=== PATIENT | female | born 1965 | race Hispanic/Latino ===

== ENCOUNTER → 2017-06-20 | Outpatient (CLI) | payer BC | LOC: RAH 12:27 | PROVIDERS: ATTEND Internal Medicine | DX: M54.9 Dorsalgia, unspecified (principal) | CPT/HCPCS: 72100 ==

== ENCOUNTER → 2018-12-18 | Outpatient (CLI) | payer BC | END | disposition home or self-care (01) | LOC: RAH 12:48 | PROVIDERS: ATTEND Internal Medicine | DX: M17.0 Bilateral primary osteoarthritis of knee (principal) | CPT/HCPCS: 73560 ==

== ENCOUNTER 2019-01-30 07:45 | Emergency (ER) | payer BC | END 2019-01-30 10:25 | disposition home or self-care (01) | LOC: EDH 07:45 | DX: S82.102A Unspecified fracture of upper end of left tibia, initial encounter for closed fracture (principal); V28.0XXA Motorcycle driver injured in noncollision transport accident in nontraffic accident, initial encounter; Y93.55 Activity, bike riding; Y92.89 Other specified places as the place of occurrence of the external cause; Y99.8 Other external cause status | CPT/HCPCS: 29505; 73562; 73600 ==

== ENCOUNTER 2022-12-02 21:14 | Emergency (ER) | payer BC ==
[~2022-12-02] VITALS: Ht 162.6 cm; Wt 122.5 kg
[2022-12-02 21:20] VITALS: BP 126/72; PULSE 92; RESP 16; O2SAT 97
[2022-12-02] MEDS ORDERED: ACETAMINOPHEN WITH CODEINE 1 TAB TAB PO ONE (22:00)
[2022-12-02] MEDS ORDERED: ACET-2079 PO (22:14)
== END 2022-12-02 22:56 | disposition home or self-care (01) ==
LOC: EDH 21:14
DX: M77.31 Calcaneal spur, right foot (principal); Z85.3 Personal history of malignant neoplasm of breast
CPT/HCPCS: 73630

== ENCOUNTER 2023-04-12 12:31 | Emergency (ER) | payer BC ==
[~2023-04-12] VITALS: Ht 162.6 cm; Wt 123.4 kg
[~2023-04-12 12:31] MED LIST: ACET-2079 PO
[2023-04-12 14:20] LABS: APPEARANCE,URINE CLEAR (CLEAR); BILIRUBIN,URINE NEGATIVE (NEGATIVE); GLUCOSE, URINE (UA) NEGATIVE (NEGATIVE); KETONES,URINE 10 mg/dL (NEGATIVE); LEUKOCYTE ESTERASE ,URINE NEGATIVE Leu/uL (NEGATIVE); NITRATE,URINE NEGATIVE (NEGATIVE); OCCULT BLOOD,URINE LARGE (NEGATIVE); PROTEIN,URINE NEGATIVE (NEGATIVE); UROBILINOGEN,URINE 0.2 mg/dL (0.2-1.0)
[2023-04-12 14:32] LABS: ADD UA MICROSCOPIC YES; COLOR,URINE LIGHT-YELLOW (YELLOW)
[2023-04-12 14:33] LABS: MUCUS,URINE RARE LPF (None Seen); SQUAMOUS EPITHELIAL CELL,UR RARE /HPF (0-2); WBC,URINE 0-1 /HPF (0-1)
[2023-04-12 15:21] LABS: BASOPHILS # (AUTO) 0.07 K/uL (0.00-0.20); BASOPHILS % (AUTO) 0.6 % (0.0-5.0); EOSINOPHILS # (AUTO) 0.01 K/uL (0.00-0.70); EOSINOPHILS % (AUTO) 0.1 % (0.0-8.0); HEMATOCRIT 43.6 % (36-48); IMMATURE GRANULOCYTE ABSOLUTE 0.07 K/uL (0-1); LYMPHOCYTES # (AUTO) 0.8 K/uL (1.0-4.8); LYMPHOCYTES % (AUTO) 7.3 % (21.0-51.0); MEAN CORPUSCULAR HEMOGLOBIN 31.4 pg (27.0-33.0); MEAN CORPUSCULAR HGB CONC 34.2 g/dL (32.0-36.0); MONOCYTES # (AUTO) 0.5 K/uL (0.1-1.0); MONOCYTES % (AUTO) 4.6 % (3.0-13.0); NEUTROPHILS # (AUTO) 9.5 K/uL (1.8-7.7); NEUTROPHILS % (AUTO) 86.8 % (40.0-77.0); PLATELET COUNT (AUTO) 224 K/uL (130-400); RED BLOOD CELL COUNT(AUTO) 4.74 MIL/uL (4.00-5.50); RED CELL DISTRIBUTION WIDTH 12.7 % (11.0-15.5); WHITE BLOOD COUNT (AUTO) 10.9 K/uL (4.8-10.8)
[2023-04-12 15:38] LABS: CREATININE 0.9 mg/dL (0.5-1.5); POTASSIUM 4.2 mmol/L (3.5-5.1)
[2023-04-12 15:42] LABS: BILIRUBIN,TOTAL 0.6 mg/dL (0.2-1.0); TOTAL PROTEIN, SERUM 7.8 g/dL (6.0-8.3)
[2023-04-12] MEDS ORDERED: METO-296 PO (16:39)
[2023-04-12] MEDS ORDERED: FAMO-136 PO (16:39)
[2023-04-12] MEDS ORDERED: KETO10 PO (16:39)
[2023-04-12] MEDS ORDERED: TAMS-1 PO (16:39)
[2023-04-12] MEDS ORDERED: TAMSULOSIN HCL 0.4 MG CAP.ER.24H PO ONE (17:00)
[2023-04-12] MEDS ORDERED: METOCLOPRAMIDE 10 MG TABLET PO ONE (17:00)
[2023-04-12 17:11] VITALS: BP 132/74; PULSE 88; RESP 18; O2SAT 99
== END 2023-04-12 17:27 | disposition home or self-care (01) ==
LOC: EDH 12:31
DX: N13.2 Hydronephrosis with renal and ureteral calculous obstruction (principal)
CPT/HCPCS: 36415; 74176; 80053; 81001; 83690; 85025

== ENCOUNTER → 2024-08-03 | Outpatient (CLI) | payer BC ==
[~2024-08-03] VITALS: Ht 162.6 cm; Wt 127.0 kg
[~2024-08-03] MED LIST changes: +FAMO-136 PO; +KETO10 PO; +METO-296 PO; +TAMS-55 PO
[2024-08-03 08:26] LABS: BASOPHILS # (AUTO) 0.06 K/uL (0.00-0.20); BASOPHILS % (AUTO) 0.9 % (0.0-5.0); EOSINOPHILS # (AUTO) 0.14 K/uL (0.00-0.70); HEMATOCRIT 42.8 % (36-48); IMMATURE GRANULOCYTE ABSOLUTE 0.02 K/uL (0-1); LYMPHOCYTES # (AUTO) 1.2 K/uL (1.0-4.8); LYMPHOCYTES % (AUTO) 16.8 % (21.0-51.0); MEAN CORPUSCULAR HEMOGLOBIN 31.1 pg (27.0-33.0); MEAN CORPUSCULAR HGB CONC 33.9 g/dL (32.0-36.0); MEAN CORPUSCULAR VOLUME 91.8 fL (79-99); MONOCYTES # (AUTO) 0.5 K/uL (0.1-1.0); MONOCYTES % (AUTO) 6.7 % (3.0-13.0); NEUTROPHILS % (AUTO) 73.3 % (40.0-77.0); PLATELET COUNT (AUTO) 194 K/uL (130-400); RED BLOOD CELL COUNT(AUTO) 4.66 MIL/uL (4.00-5.50); RED CELL DISTRIBUTION WIDTH 12.8 % (11.0-15.5); WHITE BLOOD COUNT (AUTO) 6.9 K/uL (4.8-10.8)
[2024-08-03 08:32] LABS: APPEARANCE,URINE CLEAR (CLEAR); BILIRUBIN,URINE NEGATIVE (NEGATIVE); COLOR,URINE LIGHT-YELLOW (YELLOW); GLUCOSE, URINE (UA) NEGATIVE (NEGATIVE); KETONES,URINE NEGATIVE (NEGATIVE); LEUKOCYTE ESTERASE ,URINE 25 Leu/uL (NEGATIVE); NITRATE,URINE NEGATIVE (NEGATIVE); PROTEIN,URINE NEGATIVE (NEGATIVE); UROBILINOGEN,URINE 0.2 mg/dL (0.2-1.0)
[2024-08-03 08:33] LABS: ADD UA MICROSCOPIC YES
[2024-08-03 08:34] LABS: CREATININE 0.8 mg/dL (0.5-1.0); POTASSIUM 5.1 mmol/L (3.5-5.1)
[2024-08-03 08:35] LABS: RBC,URINE 0-1 /HPF (0-1); SQUAMOUS EPITHELIAL CELL,UR MOD /HPF (0-2)
[2024-08-03 08:37] LABS: INR 0.95 (0.85-1.15); PROTHROMBIN TIME 10.1 SEC (9.6-11.6)
[2024-08-03 08:39] LABS: PARTIAL THROMBOPLASTIN TIME 28.5 SEC (26.3-35.5)
--- NOTE | 2024-08-03 09:00 | NUR ---
PREOP ABBY RT INSTRUCTED PT ON INCENTIVE SPIROMETRY.
[2024-08-03 09:21] VITALS: BP 150/72; PULSE 82; RESP 18; TEMP 97.2
--- NOTE | 2024-08-07 17:02 | NUR ---
PT order recd, but patient not on OR list per June.
== END | disposition home or self-care (01) ==
LOC: DAH 07:12 → EDSTATUS 09:00
PROVIDERS: ATTEND Orthopaedic Surgery
DX: Z01.812 Encounter for preprocedural laboratory examination (principal); M17.12 Unilateral primary osteoarthritis, left knee; M25.562 Pain in left knee
CPT/HCPCS: 36415; 80048; 81001; 85025; 85610; 85730; 87086; 87641

== ENCOUNTER 2024-08-23 09:49 | Observation (INO) | payer BC ==
[2024-08-21 10:33] LABS: BASOPHILS # (AUTO) 0.06 K/uL (0.00-0.20); BASOPHILS % (AUTO) 1.1 % (0.0-5.0); EOSINOPHILS # (AUTO) 0.18 K/uL (0.00-0.70); EOSINOPHILS % (AUTO) 3.2 % (0.0-8.0); HEMATOCRIT 43.6 % (36-48); IMMATURE GRANULOCYTE ABSOLUTE 0.03 K/uL (0-1); LYMPHOCYTES # (AUTO) 1.4 K/uL (1.0-4.8); LYMPHOCYTES % (AUTO) 24.9 % (21.0-51.0); MEAN CORPUSCULAR HEMOGLOBIN 31.6 pg (27.0-33.0); MEAN CORPUSCULAR HGB CONC 34.2 g/dL (32.0-36.0); MEAN CORPUSCULAR VOLUME 92.4 fL (79-99); MONOCYTES # (AUTO) 0.4 K/uL (0.1-1.0); MONOCYTES % (AUTO) 6.9 % (3.0-13.0); NEUTROPHILS # (AUTO) 3.6 K/uL (1.8-7.7); NEUTROPHILS % (AUTO) 63.4 % (40.0-77.0); PLATELET COUNT (AUTO) 206 K/uL (130-400); RED BLOOD CELL COUNT(AUTO) 4.72 MIL/uL (4.00-5.50); RED CELL DISTRIBUTION WIDTH 12.9 % (11.0-15.5); WHITE BLOOD COUNT (AUTO) 5.7 K/uL (4.8-10.8)
[2024-08-21 10:44] LABS: CREATININE 0.8 mg/dL (0.5-1.0); POTASSIUM 4.8 mmol/L (3.5-5.1)
[2024-08-21 10:46] VITALS: BP 146/76; PULSE 78; RESP 18; TEMP 97.3
[2024-08-21 10:53] LABS: INR 0.97 (0.85-1.15); PROTHROMBIN TIME 10.3 SEC (9.6-11.6)
--- NOTE | 2024-08-21 10:55 | NUR ---
RE: IS INITIAL IS INITIAL TEACHING DONE BY RT HOLLEY DURING PREOP
[2024-08-21 10:59] LABS: APPEARANCE,URINE CLEAR (CLEAR); BILIRUBIN,URINE NEGATIVE (NEGATIVE); COLOR,URINE LIGHT-YELLOW (YELLOW); GLUCOSE, URINE (UA) NEGATIVE (NEGATIVE); KETONES,URINE NEGATIVE (NEGATIVE); LEUKOCYTE ESTERASE ,URINE NEGATIVE Leu/uL (NEGATIVE); NITRATE,URINE NEGATIVE (NEGATIVE); OCCULT BLOOD,URINE NEGATIVE (NEGATIVE); PH,URINE 6.5 (5.0-8.0); PROTEIN,URINE NEGATIVE (NEGATIVE); UROBILINOGEN,URINE 0.2 mg/dL (0.2-1.0)
[2024-08-21 11:08] LABS: ADD UA MICROSCOPIC NO
[~2024-08-23] VITALS: Ht 162.6 cm; Wt 129.7 kg
[2024-08-23] VITALS (26 sets, daily range): BP systolic 115–134; BP diastolic 63–80; PULSE 74–92; RESP 13–22; TEMP 97.6–98.5; O2SAT 97
[2024-08-23] MEDS: ceFAZolin SODIUM 1 GM VIAL ONE ×2 (09:47→21:50)
[2024-08-23] MEDS: ceFAZolin SODIUM 2 GM VIAL ONE ×2 (09:48→21:50)
[~2024-08-23 09:49] MED LIST changes: -ACET-2079 PO; -FAMO-136 PO; +IBUP-1552 PO; -KETO10 PO; -METO-296 PO; -TAMS-55 PO
[2024-08-23] MEDS ORDERED: ceFAZolin SODIUM 1 GM VIAL ONE ×2 (10:17→11:39)
[2024-08-23] MEDS ORDERED: TRANEXAMIC ACID 1000MG/10ML ONE ×2 (10:17)
[2024-08-23] MEDS ORDERED: MIDAZOLAM HCL 1 MG/ML 2ML VIAL ONE (10:29)
[2024-08-23] MEDS ORDERED: proPOFol 10 MG/ML 20ML VIAL IV ONE (10:29)
[2024-08-23] MEDS ORDERED: rocuRONium bROMide 10MG/1ML 5ML VL ONE ×2 (10:29→13:19)
[2024-08-23] MEDS ORDERED: FENTanyl CITRate PF 50 MCG/1 ML 5ML AMP IV ONE (10:30)
[2024-08-23] MEDS ORDERED: ROPivacaine 0.5% 5MG/ML 30ML ONE (10:48)
[2024-08-23] MEDS ORDERED: dexaMETHasone SOD PHOSPHATE 10MG/ML 1ML VIAL ONE ×2 (10:48)
[2024-08-23] MEDS ORDERED: LIDOCAINE 2%-EPI 1:200,000 20 ML VIAL IJ ONE (10:48)
[2024-08-23] MEDS ORDERED: SUCCINYLCHOLINE CHLORIDE 20 MG/ML 10 ML VIAL ONE (10:48)
[2024-08-23] MEDS: LACTATED RINGERS 1000ML 1,000 ML IV ONE (11:03)
[2024-08-23] MEDS: ceFAZolin SODIUM 3 GM VIAL IVPB ONE (12:40)
[2024-08-23] MEDS ORDERED: niCARDIpine 25MG INJ IV ONE (12:49)
[2024-08-23] MEDS ORDERED: VANCOMYCIN 500MG+NS 100ML 100 ML IV ONE (13:01)
[2024-08-23] MEDS: VANCOMYCIN 500MG VIAL IV ONE (13:33)
[2024-08-23] MEDS ORDERED: phenylEPHRINE HCL 10 MG/ML 1ML VIAL IV ONE (14:15)
--- NOTE | 2024-08-23 14:40 | OP ---
Operative Note: DATE OF PROCEDURE: 08/23/24 SURGEON: PITA FARMER MD PARK INTERPRETIVE SPECIALIST: [Timothy Sanchez CFA] ANESTHESIA: [General anesthesia plus regional block] ANESTHESIOLOGIST/COMMUNITY RELATIONS SPECIALIST: [Brandon Escudero. COMMUNITY RELATIONS SPECIALIST] PREOPERATIVE DIAGNOSIS: [Left knee osteoarthritis] POSTOPERATIVE DIAGNOSIS: [Left knee osteoarthritis] IMPLANTS: [Biomet vanguard. Femur 62.5 left cruciate retaining. Tibia 71 fixed cruciate. Tibial liner size 10 x 70 1/75 cruciate retaining. Patella 31 x 8 asymmetric.] PROCEDURE: [Left total knee arthroplasty] ESTIMATED BLOOD LOSS: [100 mL] INDICATIONS: [Morbidly obese 59-year-old female with history of pain to the left knee secondary to osteoarthritis that is no longer responded to conservative treatment the patient being admitted for total knee arthroplasty. The procedure was understood by the patient, risks involved, benefits and possible complications and agreed to sign the consent form] DESCRIPTION OF PROCEDURE: [After adequate general anesthesia was achieved and regional block obtained the left lower extremity was prepped and draped in the usual manner previous placement of the tourniquet in the proximal thigh. The extremity was elevated and exsanguinated with an Esmarch bandage and the tourniquet was inflated to 250 mmHg removing then the Esmarch band. With the knee in flexion a longitudinal incision was then made in the anterior aspect through the skin followed by dissection of the subcutaneous tissue. A bone infusion needle was then inserted just medial to the tibial tuberosity into the proximal metaphysis and we proceeded then to inject 50 mL of normal saline solution mixed with 500 mg of vancomycin, removing then the needle. A paramedian approach was then made with the Bovie cautery cutting through the q uadriceps tendon, medial patellar retinaculum and patellar tendon retinaculum. The retropatellar tendon fat was then excised and the soft tissue elements of the tibia were elevated subperiosteally and retractors were applied medially and laterally . The anterior cruciate ligaments was resected. With the use of a drill a starting hole was made in the distal femur entering the intramedullary canal and then after removal of the drill an intramedullary guide was inserted with a 5 degree valgus block that touched the distal femur and to this the distal femoral cutting guide was then applied anteriorly and was secured to the distal femur with the use of pins. The intramedullary guide was then removed and with the use of the oscillating saw we proceeded to resect the distal femur removing the fragments and the guide. The femoral sizer was then applied distally and drill holes were made removing the sizer and the 4-in-1 cutting block was then inserted and the anterior, posterior and chamfer cuts were made removing the fragments and the block. The posterior cruciate ligament retractor was then inserted posterior to the tibia and this was brought forward proceeding then to apply the external tibial alignment guide and secured the proximal cutting guide to the tibia with the use of pins. With the use of the oscillating saw the proximal cut tibia was made protecting the integrity of the PCL. The bone fragment was removed and the trial tibia plate was chosen. At this point the menisci were removed sharply and with the use of the curved osteotome the posterior osteophytes of the femur were removed. The trial components were then inserted at the femur and tibia with a trial liner bringing the knee into extension noticing that the patient had a very stable knee in flexion, extension and with valgus and varus stress. The knee was maintained in extension and the patella was then addressed proceeding to measure its thickness and then with the use of the oscillating saw we removed bone from the articular surface and restored the height with application of a trial component after 3 peg holes were made. The patellofemoral ligament was removed and then the patellofemoral tracking was checked noticed to be abnormal, the patella tracked laterally for this reason an extensive lateral release was performed correcting the tracking of the patella. At this moment all the components were removed, the tibia after the metaphyseal defect was created and while cement was being mixed on the back table we proceeded to irrigate the joint with antibiotic solution and then cover the entry to the femoral canal with a bone plug. Once the cement was ready we proceeded to apply it first to the tibia surface inserting the final component and then to the femoral surface and inserted the final component removing the excess cement and then applying a trial liner bringing the knee into extension for compression. Then we proceeded to irrigate the patella surface and dried it applying then bone cement and the final patellar component was inserted and was secured with application of a clamp. The joint was irrigated with a warm diluted Betadine solution while the cement dried followed by irrigation with antibiotic solution. The trial liner was removed as well as the patellar clamp and we proceeded then to irrigate the posterior aspect of the joint to remove all the remaining debris and the final tibial liner was inserted and locked against the tibia . The range of motion was checked and noticed to be adequate with full extension and flexion, no laxity in valgus or varus stress and with adequate patellofemoral tracking. The patient had no anterior or posterior drawer. After further irrigation the tourniquet was deflated and hemostasis was done. The wound was then closed with approximation of the quadriceps tendon, patellar retinaculum and patellar tendon retinaculum with #1 Vicryl crossed stitches followed by closure of the subcutaneous tissue with 2-0 Monocryl inverted stitches and the skin was closed with 3-0 Monocryl subcuticularly. The wound was covered with a suction dressing followed by application of an Tono bandage for compression and the drapes were then removed transferring the patient to the hospital bed and then taken to recovery room for follow-up by anesthesia. There were no complications during the procedure.] PITA FARMER MD August 23, 2024 14:40
[2024-08-23] MEDS ORDERED: FENTanyl CITRate PF 50 MCG/1 ML 2ML VIAL ONE ×2 (14:57→15:09)
[2024-08-23] MEDS ORDERED: NEOSTIGMINE METHYLSULFATE 1MG/ML IV ONE (14:58)
[2024-08-23] MEDS ORDERED: GLYCOPYRROLATE 0.2 MG/ML 5 ML VIAL ONE (14:58)
[2024-08-23] MEDS: hydroMORPHone 1 MG INJ ONE (16:02)
[2024-08-23] MEDS: FENTanyl CITRate PF 50 MCG/1 ML 2ML VIAL ONE (16:59)
[2024-08-23] MEDS ORDERED: DiphenhydrAMINE HCL 50 MG/ML VIAL IVP PRN (17:30)
[2024-08-23] MEDS ORDERED: PoTASSium chloRIDE 20MEQ ER 20 MEQ ERTAB PO PRN (17:30)
[2024-08-23] MEDS ORDERED: FERROUS FUMARATE 324 MG TABLET PO PRN (17:30)
[2024-08-23] MEDS ORDERED: PoTASSium chl 10% ELIXIR 20MEQ 20 MEQ/15 ML UDCUP PO PRN (17:30)
[2024-08-23] MEDS ORDERED: CALCIUM CARB 500MG PO PRN (17:30)
[2024-08-23] MEDS ORDERED: PoTASSium chloRIDE 20MEQ/100ML 100 ML IV PRN (17:30)
[2024-08-23] MEDS ORDERED: TEMAZepam 15 MG CAPSULE PO PRN (17:30)
--- NOTE | 2024-08-23 17:57 | NUR ---
PT called to PACU, found patient is waiting for orders and admit orders. PT eval in PACU. Pt requests to ambulate to . Pt toileted and transferred back to bed in WC. Education provided on pain management, fall precautions, DC plan, plan of care. All questions answered.
--- NOTE | 2024-08-23 18:00 | NUR ---
PATIENT REPORT RECEIVED PATIENT FROM PACU. PATIENT DROWSY. PATIENT C/O OF NAUSEA AND PAIN. HEAD TO TOE ASSESSMENT INITIATED. VITALS STABLE. RT AWARE PATIENT ON UNIT. IS ORDERED.
--- NOTE | 2024-08-23 18:15 | NUR ---
ORTHO COORDINATOR: TEACHING REGARDING DVT AND PNEUMONIA PREVENTION, PAIN EXPECTATIONS AND PAIN MANAGEMENT. PATIENT IN BED, SIGNIFICANT OTHER AT BEDSIDE. B SCD SLEEVES IN PLACE AND FUNCTIONING. NO INCENTIVE SPIROMETER AT BEDSIDE. PATIENT DROWSY. PATIENT RETURN DEMONSTRATED PROPER FOOT FLEXION/EXTENSION EXERCISES. FREQUENCY OF USE OF INCENTIVE SPIROMETER REVIEWED. NUMERIC PAIN SCALE REVIEWED. PATIENT INSTRUCTED TO SET AN ALARM FOR EVERY FOUR HOURS AND PERFORM A PAIN ASSESSMENT. INSTRUCTED TO ASSIGN A NUMERIC VALUE AND TYPE OF PAIN AND CALL OUT TO RECEIVE APPROPRIATE MEDICATION. PURPOSE OF SCHEDULED TYLENOL EXPLAINED. PATIENT DESIRE TO RETURN HOME WITH HOME HEALTH PHYSICAL THERAPY FOR AFTERCARE. ICE PACK PLACED TO SURGICAL KNEE. PATIENT CURRENTLY RATES PAIN 5/10. NO ADDITIONAL QUESTIONS/CONCERNS AT THIS TIME. 1825 REPORT TO PRIMARY NURSE REGARDING PAIN LEVEL. PRIMARY NURSE ACKNOWLEDGED COMMUNICATION. 1830 CALL PLACED TO RESPIRATORY THERAPY. RESPIRATORY THERAPIST ACKNOWLEDGED COMMUNICATION.
[2024-08-23] MEDS: ondanSETRON 4MG INJ IVP PRN (18:52)
[2024-08-23] MEDS: OXYcodONE HCL 5 MG TAB PO PRN (18:53)
[2024-08-23] MEDS: ceFAZolin SODIUM 1 GM VIAL IVP SCH (21:26)
[2024-08-23] MEDS: CeleCOXib 200 MG CAP PO SCH (21:42)
[2024-08-23] MEDS: FAMOTIDINE 20MG TAB PO SCH (21:42)
[2024-08-23] MEDS: traMADol HCL 50 MG TABLET PO PRN (21:58)
[2024-08-24] MEDS: acetaMINOPHEN 500 MG TABLET PO SCH (01:28)
[2024-08-24] MEDS: OXYcodONE HCL 5 MG TAB PO PRN (01:29)
[2024-08-24 03:20] VITALS: BP 114/53; PULSE 89; RESP 18; TEMP 98.8
[2024-08-24 05:16] LABS: MEAN CORPUSCULAR HEMOGLOBIN 31.3 pg (27.0-33.0); MEAN CORPUSCULAR HGB CONC 33.8 g/dL (32.0-36.0); MEAN CORPUSCULAR VOLUME 92.4 fL (79-99); RED BLOOD CELL COUNT(AUTO) 4.22 MIL/uL (4.00-5.50); RED CELL DISTRIBUTION WIDTH 12.7 % (11.0-15.5); WHITE BLOOD COUNT (AUTO) 10.1 K/uL (4.8-10.8)
[2024-08-24 05:43] LABS: CREATININE 0.8 mg/dL (0.5-1.0); POTASSIUM 4.2 mmol/L (3.5-5.1)
[2024-08-24 08:00] VITALS: BP 128/60; PULSE 77; RESP 20; TEMP 98.2; O2SAT 95
[2024-08-24] MEDS: APIXaban 2.5 MG TABLET PO SCH (08:19)
[2024-08-24] MEDS: polyETHYLene GLYCol 3350 17 GM POWD.PACK PO SCH (08:20)
[2024-08-24] MEDS: 0.9%NACL 1000ML 1,000 ML IV SCH (08:20)
--- NOTE | 2024-08-24 08:53 | PN ---
Ortho postop day one. Patient is out of bed seated in a chair alternating extension and flexion of the extremity using a footstool. The Tono bandage his already been removed in the natasha dressing is intact. She has ice present to the [facility]. Vital signs have been stable. Afebrile. Laboratory results reviewed. Voiding on her own without difficulty. Incentive spirometry reinforced. SCD sleeves are currently not on but are available. Operative findings discussed with the patient. She did ambulate several steps with the therapy yesterday and to the restroom and is pending further physical therapy this morning. Gastrocnemius soft nontender. Negative Homans. Distal neurovascular exam normal. Anticipated discharge goal is home health/PT Assessment: Status post left total knee arthroplasty. Plan: Continue Dr. Phelps was TKA protocol and discharge planning. Vitals/Labs Vital Signs Date Time Temp Pulse Resp B/P (MAP) Pulse Ox O2 Delivery O2 Flow Rate FiO2 08/24/24 08:00 98.2 77 20 128/60 95 Room Air 08/24/24 03:20 2.0 08/23/24 20:00 21 Laboratory Tests 08/24/24 04:51 Medications Current Medications Cefazolin Sodium 1 gm STK-MED ONCE .ROUTE; Start 08/23/24 at 09:47; Stop 08/23/24 at 09:48; Status DC Cefazolin Sodium 2 gm STK-MED ONCE .ROUTE; Start 08/23/24 at 09:48; Stop 08/23/24 at 09:48; Status DC Lactated Ringer's 1,000 ml @ As Directed STK-MED ONCE IV Last administered on 08/23/24at 11:03; Start 08/23/24 at 09:48; Stop 08/23/24 at 09:48; Status DC Tranexamic Acid 1,000 mg STK-MED ONCE .ROUTE; Start 08/23/24 at 10:17; Stop 08/23/24 at 10:17; Status DC Tranexamic Acid 1,000 mg STK-MED ONCE .ROUTE; Start 08/23/24 at 10:17; Stop 08/23/24 at 10:17; Status DC Cefazolin Sodium 1 gm STK-MED ONCE .ROUTE; Start 08/23/24 at 10:17; Stop 08/23/24 at 10:18; Status DC Propofol 200 mg STK-MED ONCE IV; Start 08/23/24 at 10:29; Stop 08/23/24 at 10:29; Status DC Midazolam HCl 2 mg STK-MED ONCE .ROUTE; Start 08/23/24 at 10:29; Stop 08/23/24 at 10:29; Status DC Rocuronium [place] 50 mg STK-MED ONCE .ROUTE; Start 08/23/24 at 10:29; Stop 08/23/24 at 10:30; Status DC Fentanyl Citrate 250 mcg STK-MED ONCE IV; Start 08/23/24 at 10:30; Stop 08/23/24 at 10:30; Status DC Succinylcholine Chloride 200 mg STK-MED ONCE .ROUTE; Start 08/23/24 at 10:48; Stop 08/23/24 at 10:48; Status DC Ropivacaine 150 mg STK-MED ONCE .ROUTE; Start 08/23/24 at 10:48; Stop 08/23/24 at 10:48; Status DC Dexamethasone Sodium Phosphate 10 mg STK-MED ONCE .ROUTE; Start 08/23/24 at 10:48; Stop 08/23/24 at 10:48; Status DC Lidocaine/ Epinephrine 20 ml STK-MED ONCE IJ; Start 08/23/24 at 10:48; Stop 08/23/24 at 10:48; Status DC Dexamethasone Sodium Phosphate 10 mg STK-MED ONCE .ROUTE; Start 08/23/24 at 10:48; Stop 08/23/24 at 10:49; Status DC Cefazolin Sodium 1 gm STK-MED ONCE .ROUTE; Start 08/23/24 at 11:39; Stop 08/23/24 at 11:39; Status DC Nicardipine HCl 25 mg STK-MED ONCE IV; Start 08/23/24 at 12:49; Stop 08/23/24 at 12:49; Status DC Vancomycin HCl 100 ml @ As Directed STK-MED ONCE IV; Start 08/23/24 at 13:01; Stop 08/23/24 at 13:01; Status DC Cefazolin Sodium 3 gm STK-MED ONCE IVPB Last administered on 08/23/24at 12:40; Start 08/23/24 at 12:40; Stop 08/23/24 at 13:20; Status DC Rocuronium [place] 50 mg STK-MED ONCE .ROUTE; Start 08/23/24 at 13:19; Stop 08/23/24 at 13:20; Status DC Vancomycin HCl 500 mg STK-MED ONCE IV Last administered on 08/23/24at 13:33; Start 08/23/24 at 13:33; Stop 08/23/24 at 13:39; Status DC Cefazolin Sodium 3 gm STK-MED ONCE IRRIG Last administered on 08/23/24at 13:35; Start 08/23/24 at 13:35; Stop 08/23/24 at 13:39; Status DC Phenylephrine HCl 10 mg STK-MED ONCE IV; Start 08/23/24 at 14:15; Stop 08/23/24 at 14:15; Status DC Fentanyl Citrate 100 mcg STK-MED ONCE .ROUTE; Start 08/23/24 at 14:57; Stop 08/23/24 at 14:58; Status DC Glycopyrrolate 1 mg STK-MED ONCE .ROUTE; Start 08/23/24 at 14:58; Stop 08/23/24 at 14:58; Status DC Neostigmine Methylsulfate 10 mg STK-MED ONCE IV; Start 08/23/24 at 14:58; Stop 08/23/24 at 14:58; Status DC Fentanyl Citrate 100 mcg STK-MED ONCE .ROUTE; Start 08/23/24 at 15:09; Stop 08/23/24 at 15:09; Status DC Hydromorphone HCl 1 mg STK-MED ONCE .ROUTE Last administered on 08/23/24at 16:02; Start 08/23/24 at 15:48; Stop 08/23/24 at 15:49; Status DC Fentanyl Citrate 100 mcg STK-MED ONCE .ROUTE Last administered on 08/23/24at 16:59; Start 08/23/24 at 16:56; Stop 08/23/24 at 16:56; Status DC Sodium Chloride 1,000 ml @ 100 mls/hr Q10H IV; Start 08/23/24 at 17:30; Stop 08/24/24 at 08:25; Status DC Polyethylene Glycol 17 gm DAILY PO Last administered on 08/24/24at 08:20; Start 08/24/24 at 09:00; Stop 09/23/24 at 08:59 Bisacodyl 10 mg DAILY PRN RC; Start 08/26/24 at 17:30; Stop 09/25/24 at 17:29 Ketorolac Tromethamine 15 mg Q6H PRN IV; Start 08/23/24 at 17:30; Stop 08/28/24 at 17:29 Famotidine 20 mg BID PO Last administered on 08/24/24at 08:19; Start 08/23/24 at 21:00; Stop 09/22/24 at 20:59 Ferrous Fumarate 324 mg DAILY PRN PO; Start 08/23/24 at 17:30; Stop 09/22/24 at 17:29 Temazepam 15 mg HS PRN PO; Start 08/23/24 at 17:30; Stop 09/22/24 at 17:29 Ondansetron HCl 4 mg Q6H PRN IVP Last administered on 08/24/24at 08:19; Start 08/23/24 at 17:30; Stop 09/22/24 at 17:29 Calcium Carbonate 500 mg Q12H PRN PO; Start 08/23/24 at 17:30; Stop 09/22/24 at 17:29 Diphenhydramine HCl 25 mg Q6H PRN IVP; Start 08/23/24 at 17:30; Stop 09/22/24 at 17:29 Cefazolin Sodium 3 gm Q8H IVP Last administered on 08/24/24at 05:17; Start 08/23/24 at 22:30; Stop 08/24/24 at 06:31; Status DC Potassium Chloride 100 ml @ 100 mls/hr AD PRN IV; Start 08/23/24 at 17:30; Stop 09/22/24 at 17:29 Potassium Chloride 20 meq AD PRN PO; Start 08/23/24 at 17:30; Stop 09/22/24 at 17:29 Potassium Chloride 20 meq AD PRN PO; Start 08/23/24 at 17:30; Stop 09/22/24 at 17:29 Celecoxib 200 mg BID PO Last administered on 08/24/24at 08:19; Start 08/23/24 at 21:00; Stop 09/22/24 at 20:59 Oxycodone HCl 5 mg Q4H PRN PO Last administered on 08/23/24at 18:53; Start 08/23/24 at 17:30; Stop 08/30/24 at 17:29 Oxycodone HCl 10 mg Q4H PRN PO Last administered on 08/24/24at 08:19; Start 08/23/24 at 17:30; Stop 08/30/24 at 17:29 Tramadol HCl 50 mg Q6H PRN PO Last administered on 08/23/24at 21:58; Start 08/23/24 at 17:30; Stop 08/28/24 at 17:29 Acetaminophen 1,000 mg Q8H PO Last administered on 08/24/24at 08:15; Start 08/23/24 at 17:30; Stop 09/22/24 at 17:29 Apixaban 2.5 mg BID PO Last administered on 08/24/24at 08:19; Start 08/24/24 at 09:00; Stop 09/23/24 at 08:59 Cefazolin Sodium 2 gm STK-MED ONCE .ROUTE; Start 08/23/24 at 21:19; Stop 08/23/24 at 21:19; Status DC Cefazolin Sodium 1 gm STK-MED ONCE .ROUTE; Start 08/23/24 at 21:20; Stop 08/23/24 at 21:20; Status DC BRUCE HERNANDEZ NP August 24, 2024 08:53
[2024-08-24] MEDS: ketOROlac 15MG/ML VIAL (15MG/ML) IV PRN (10:29)
--- NOTE | 2024-08-24 11:00 | NUR ---
CM NOTE [phone] pt is approved.
[2024-08-24 12:00] VITALS: BP 115/58; PULSE 76; RESP 18; TEMP 97.7
--- NOTE | 2024-08-24 14:00 | NUR ---
ELENA PT LIVESwith partner, independent with adls/ambulation no dme no home services. al plan is back home at al. Addendum: 08/24/24 at 1906 by YOLANDA NEWBERRY CM Amended: Links added.
--- NOTE | 2024-08-24 14:30 | NUR ---
ORTHO COORDINATOR: REINFORCED TEACHING. PATIENT COMPLETED PHYSICAL THERAPY. SIGNIFICANT OTHER AT BEDSIDE. PAIN MANAGEMENT STRATEGY WORKING. SET EXPECTATION FOR PATIENT TO SHOWER TODAY. PATIENT PERFORMING INCENTIVE SPIROMETER INSTRUCTED. PATIENT ENCOURAGED TO CONTINUE PREMEDICATING PRIOR TO HOME PHYSICAL THERAPY VISITS AND PERIODS OF HIGH ACTIVITY, TO CONTINUE WITH INCENTIVE SPIROMETER AND FOOT FLEXION/EXTENSION EXERCISES. REVIEWED NEXT STEPS ONCE HOME HEALTH APPROVED. QUESTIONS ANSWERED. PATIENT AND SIGNIFICANT OTHER VERBALIZED UNDERSTANDING TO ALL INSTRUCTIONS. NO ADDITIONAL QUESTIONS/CONCERNS AT THIS TIME.
[2024-08-24 16:00] VITALS: BP 114/58; PULSE 80; RESP 16; TEMP 98.6
--- NOTE | 2024-08-24 17:00 | NUR ---
cm note call received from [facility]'s dme, and per rep has not met deductible and will have to purchase walker and 3 in 1 bsc. updated pt and friend on this. this cm spoke to PT and states pt did well with regular walker standard, and updated Ayana WRAPPING MACHINE OPERATOR and in agreement for regular walker.instead of heavy duty. pt in agreement she sent pt's friend will go and pickup dme. and purchase and bring to hospital.
--- NOTE | 2024-08-24 17:01 | NUR ---
cmnote per pt and partner. states someone is always available to stay with pt at home and niece or other family member will stay with her after dc. she will not be alone. prefers to go back home after dc.
[2024-08-24 20:00] VITALS: BP 121/62; PULSE 81; RESP 20; TEMP 98.5
[2024-08-24 22:47] VITALS: O2SAT 95
[2024-08-25] VITALS: BP 108/58; PULSE 84; RESP 20; TEMP 98.8
[2024-08-25 04:00] VITALS: BP 102/52; PULSE 91; RESP 20; TEMP 98.1
[2024-08-25 08:00] VITALS: BP 112/60; PULSE 82; RESP 16; TEMP 98
[2024-08-25 12:00] VITALS: BP 124/83; PULSE 86; RESP 16; TEMP 98
[2024-08-25] MEDS ORDERED: OXYC-38 PO (14:11)
[2024-08-25] MEDS ORDERED: APIX2.5T PO (14:11)
--- NOTE | 2024-08-25 14:22 | DS ---
DISCHARGE SUMMARY [ Date of admission: 08/23/2024 Date of discharge: 08/25/2024 Final diagnosis: Left Knee osteoarthritis Surgical procedures: Left total Knee arthroplasty on 08/23/2024 Summary of History and Physical: The patient is a 59 year-old female with history of arthrosis to the left knee that has been present for several years and has been treated conservatively with no longer adequate response to treatment. The patient is being admitted for total knee arthroplasty. Previous medical history: Breast cancer, osteoarthritis, obesity Previous surgical history: Left mastectomy, partial right mastectomy Family history: Diabetes mellitus Social history: Negative for use of tobacco or alcohol. Allergies: Shrimp, iodine Review of system: Negative on admission Hospital course: The patient was admitted and taken to the operating room for a total knee arthroplasty, procedure that went uneventful. Postoperatively the patient remained hemodynamically stable and afebrile. The patient received antibiotic and anticoagulation prophylaxis as per protocol. The patient was evaluated by physical therapy and started rehabilitation treatment with ambulation with the use of walker, weightbearing as tolerated, range of motion exercises and bed transfers. The patient was also evaluated by case management and arrangements were made for discharge. The patient tolerated diet well. On postop day #2 all the arrangements were completed, and the patient was dismisse d. Condition on discharge: Good Disposition: The patient will be dismissed home with home health. Follow-up will be done at the office in 3 weeks. The patient is to continue with physical therapy and rehabilitation at home and be ambulatory with the use of a walker, weightbearing as tolerated. Continue taking pain medication as instructed as well as anticoagulation prophylaxis. Continue with home medications also as instructed and continue with pre admission diet.] PITA FARMER MD ] PITA FARMER MD August 25, 2024 14:22
--- NOTE | 2024-08-25 16:30 | NUR ---
MARCELINO GIVEN DISCHARGE INSTRUCTIONS
[2024-08-26] MEDS ORDERED: BisaCODYL 10 MG SUPP.RECT RC PRN (17:30)
== END 2024-08-25 16:30 | disposition home or self-care (01) ==
LOC: DAH 09:49 → DAHIP 09:50 → DAH 09:50 → 4DH 18:00
PROVIDERS: ADMIT Orthopaedic Surgery; ATTEND Orthopaedic Surgery
DX: M17.12 Unilateral primary osteoarthritis, left knee (principal); G89.18 Other acute postprocedural pain; E66.01 Morbid (severe) obesity due to excess calories; Z86.2 Personal history of diseases of the blood and blood-forming organs and certain disorders involving the immune mechanism; Z68.42 Body mass index [BMI] 45.0-49.9, adult; Z79.899 Other long term (current) drug therapy; Z88.8 Allergy status to other drugs, medicaments and biological substances; Z91.013 Allergy to seafood; Z85.3 Personal history of malignant neoplasm of breast; Z90.13 Acquired absence of bilateral breasts and nipples
CPT/HCPCS: 80048 ×2; 85025; 85610; 87086; 81003; 36415 ×2; 87641; 27447; 96365; 96375 ×2; 64447; 88311; 88305; 97161; 97116 ×5; 97530 ×9; 96376; 96366; 85027; G0378 ×43; A4663; J7120 ×2; J0690 ×9; J3010 ×4; J1171; J3490 ×7; J1100 ×2; J0330; J2250; J2704; J2405 ×2; J2710; J2795; J2371; J3370 ×2; A9272; A4649 ×2; A4930 ×4; C1713; C1776; A5120; A4215; A4223 ×2; A4213; A4222; A4221; A4216; J1885